=== PATIENT | male | born 1960 | race Caucasian/White ===

== ENCOUNTER 2018-05-22 22:53 | Inpatient (IN) | payer OTHER ==
[2018-05-22] MEDS ORDERED: ASPIRIN 81 MG CHEWABLE TAB PO ONE (23:00)
[2018-05-22] MEDS ORDERED: NS 1,000 ML IV ONE (23:00)
--- NOTE | 2018-05-22 23:06 | CPEKG ---
Heart Rate: 81 RR Interval: 741 P-R Interval: 164 QRSD Interval: 132 QT Interval: 364 QTC Interval: 423 P [place]: 71 QRS [place]: -85 T Wave [place]: 43 EKG Severity - ABNORMAL ECG - EKG Impression: SINUS RHYTHM EKG Impression: RIGHT BUNDLE BRANCH BLOCK Electronically Signed By: Murphy Holland 23-May-2018 06:49:45
--- NOTE | 2018-05-22 23:10 | EDPHY ---
H & P Stated Complaint: CP started last night Time Seen by Provider: 05/22/18 23:07 HPI/ROS: HPI CHIEF COMPLAINT: Chest pain HISTORY OF PRESENT ILLNESS: Patient 57-year-old male, presents emergency room with chest pain. He states that he has chest pain started last night around this time or close to 24 hr ago. Patient states that he had a pressure sensation in his chest. It has been intermittent not constant however he states that he has had worsening inspiratory chest pain. He describes it is pleuritic pain. It is across his chest. He denies any fever, denies hemoptysis , denies profound shortness of breath. The chest discomfort is unusual for him. He did state that goes up to his jaw all and neck at times. It does not go down his arm or back. He decided come the emergency room after 24 hr of discomfort as the pain got worse worse when he breathes in. Past Medical History: History of hypertension, hyperlipidemia, tobacco use Past Surgical History: Inguinal hernia Social History: Smokes half pack per day. 2 drinks of liquor per night. Occasional edible marijuana including tonight. Family History: Family history significant for atherosclerotic disease in his father who in his 60s. ROS REVIEW OF SYSTEMS: A comprehensive 10 point review of systems is otherwise negative aside from elements mentioned in the history of present illness. Exam Constitutional triage nursing summary reviewed, vital signs reviewed, awake/ alert. Eyes normal conjunctivae and sclera, EOMI, PERRLA. HENT normal inspection, atraumatic, moist mucus membranes, no epistaxis, neck supple/ no meningismus, no raccoon eyes. Respiratory clear to auscultation bilaterally, normal breath sounds, no respiratory distress, no wheezing. Cardiovascular rate normal, regular rhythm, no murmur, no edema, distal pulses normal. Gastrointestinal soft, non-tender, no rebound, no guarding, normal bowel sounds, no distension, no pulsatile mass. Genitourinary no CVA tenderness. Musculoskeletal no midline vertebral tenderness, full range of motion, no calf swelling, no tenderness of extremities, no meningismus, good pulses, neurovascularly intact. Skin pink, warm, & dry, no rash, skin atraumatic. Neurologic awake, alert and oriented x 3, AAOx3, moves all 4 extremities equally, motor intact, sensory intact, CN II-XII intact, normal cerebellar, normal vision, normal speech. Psychiatric normal mood/affect. Heme/Lymph/Immune no lymphadenopathy. Differential diagnosis includes but is not limited to: ACS, atypical chest pain , pneumothorax, pneumonia, pulmonary embolism, aortic dissection, congestive heart failure, tumor, musculoskeletal pain, esophageal pain, GERD, peptic ulcer disease, pancreatitis Medical Decision Making: Plan for this patient IV establishment with full cardiac workup obtain EKG to rule out acute coronary syndrome, chest x-ray,, rule out pulmonary embolism D-dimer, rule out pneumothorax with chest x-ray, rule out acute coronary syndrome with EKG and troponin. Re-evaluation: EKG interpretation by me on record in [employer] system. Impression time of EKG 2304, this is sinus rhythm rate of 81 right bundle-branch block present. I do not appreciate acute ST elevation. No significant ST depression. Unclear patient has a history of right bundle branch block. CT angiogram of the chest shows no evidence of pulmonary embolism this was called to me by Dr. Hsu. 0103: Patient's chest pain evaluation is unremarkable here in the emergency room. He does have a right bundle branch block but no old EKG to compare this to. D-dimer was positive however the CT angiogram of the chest shows no evidence of PE. Patient's troponin noted be negative. Patient be admitted to the hospital service for further cardiac evaluation chest pain rule out. Patient does have cardiovascular risk factors which includes tobacco use, age, hypertension, hyperlipidemia and family history. Spoke with the hospitalist service Dr. Holcomb who agrees to admit. Source: Patient, Family - Personal History Current Tetanus/Diphtheria Vaccine: Unsure Current Tetanus Diphtheria and Acellular Pertussis (TDAP): Unsure - Medical/Surgical History Hx Asthma: No Hx Chronic Respiratory Disease: No Hx Diabetes: No Hx Cardiac Disease: No Hx Renal Disease: No Hx Cirrhosis: No Hx Alcoholism: No Hx HIV/AIDS: No Hx Splenectomy or Spleen Trauma: No Other PMH: depression, , high chol, anxiety - Social History Smoking Status: Current every day smoker Constitutional: Initial Vital Signs Temperature (C) 36.9 C 05/22/18 22:55 Heart Rate 86 05/22/18 22:55 Respiratory Rate 16 05/22/18 22:55 Blood Pressure 143/87 H 05/22/18 22:55 O2 Sat (%) 95 05/22/18 22:55 O2 Delivery Mode Room Air O2 (L/minute) 2 Allergies/Adverse Reactions: No Known Allergies Allergy (Verified 05/23/18 09:57) Home Medications: Medication Instructions Recorded Atorvastatin Calcium [Lipitor 40 40 mg PO DAILY 05/23/18 mg (*)] Melatonin/Pyridoxine HCl (B6) 1 each PO HS 05/23/18 [Melatonin 10 mg Tablet] Sertraline HCl [Zoloft 50mg (*)] 50 mg PO DAILY 05/23/18 clonazePAM [klonoPIN (*)] 0.33 mg PO DAILY 05/23/18 clonazePAM [klonoPIN (*)] 0.5 mg PO DAILY@12 05/23/18 clonazePAM [klonoPIN (*)] 1 mg PO HS 05/23/18 Medical Decision Making - Data Points Laboratory Results: Laboratory Results 05/22/18 23:10 05/22/18 23:10 Medications Given: Cetirizine HCl (Zyrtec) 10 mg PO DAILY PATY Stop: 11/19/18 18:14 Last Admin: 05/23/18 20:57 Dose: Not Given Clonazepam (Klonopin) 1 mg PO HS PATY Stop: 11/19/18 20:59 Last Admin: 05/23/18 20:56 Dose: 1 mg Colchicine (Colchicine) 0.6 mg PO BID PATY Stop: 11/19/18 15:29 Last Admin: 05/23/18 20:56 Dose: 0.6 mg Enoxaparin Sodium (Lovenox) 90 mg SC BID PATY Stop: 11/19/18 20:59 Last Admin: 05/23/18 20:55 Dose: 90 mg Guaifenesin (Mucinex) 1,200 mg PO BID PATY Stop: 11/19/18 18:14 Last Admin: 05/23/18 20:57 Dose: Not Given Hydromorphone HCl (Dilaudid) 0.2 - 1 mg IVP Q2HRS PRN PRN Reason: Pain, Severe Unable to Take PO Stop: 06/02/18 11:38 Last Admin: 05/23/18 11:51 Dose: 1 mg Sodium Chloride (Ns) 1,000 mls @ 75 mls/hr IV CONT PATY Stop: 11/19/18 01:29 Last Admin: 05/23/18 23:32 Dose: 1,000 mls Amiodarone HCl 540 mg/ (Dextrose) 300 mls @ 16.667 mls/hr IV ONCE ONE PRN Reason: Protocol Stop: 05/24/18 12:59 Last Admin: 05/23/18 19:12 Dose: 300 mls Ketorolac Tromethamine (Toradol) 15 - 30 mg IVP Q6HRS PRN PRN Reason: Pain, Moderate Stop: 05/28/18 17:59 Last Admin: 05/23/18 23:32 Dose: 15 mg Miscellaneous Medication (Melatonin/Pyridoxine Hcl (B6) [Melatonin 10 Mg Tablet] ) 1 each PO [facility] Stop: 11/19/18 20:59 Last Admin: 05/23/18 21:31 Dose: Not Given Nicotine (Nicoderm Cq) 14 mg TD DAILY [facility] Stop: 11/19/18 03:29 Last Admin: 05/23/18 09:53 Dose: 14 mg Nitroglycerin (Nitrostat) 0.4 mg SL Q5M PRN PRN Reason: Chest Pain Stop: 11/19/18 01:24 Last Admin: 05/23/18 11:34 Dose: 1 tab Discontinued Medications Aspirin (Aspirin) 324 mg PO EDNOW ONE Stop: 05/22/18 23:01 Last Admin: 05/22/18 23:09 Dose: 324 mg Aspirin Buffered (Aspirin Ec) 325 mg PO ONCALL ONE Stop: 05/23/18 12:49 Last Admin: 05/23/18 14:52 Dose: Not Given Clonazepam (Klonopin) 1 mg PO [facility] Stop: 11/19/18 02:59 Last Admin: 05/23/18 04:00 Dose: 1 mg Diazepam (Valium) 5 mg PO ONCALL ONE Stop: 05/23/18 12:49 Last Admin: 05/23/18 14:52 Dose: Not Given Diphenhydramine HCl (Benadryl) 25 mg PO ONCALL ONE Stop: 05/23/18 12:49 Last Admin: 05/23/18 14:52 Dose: Not Given Enoxaparin Sodium (Lovenox) 90 mg SC BID [facility] Stop: 11/19/18 12:14 Last Admin: 05/23/18 12:57 Dose: Not Given Famotidine (Pepcid) 20 mg PO ONCALL ONE Stop: 05/23/18 12:49 Last Admin: 05/23/18 14:52 Dose: Not Given Sodium Chloride (Ns) 1,000 mls @ 0 mls/hr IV EDNOW ONE; Wide Open PRN Reason: Protocol Stop: 05/22/18 23:01 Last Admin: 05/22/18 23:11 Dose: 1,000 mls Amiodarone HCl (Amiodarone Hcl) 100 mls @ 600 mls/hr IV ONCE ONE Stop: 05/23/18 12:45 Last Admin: 05/23/18 12:57 Dose: 100 mls Sodium Chloride (Ns) 1,000 mls @ 0 mls/hr IV ONCALL ONE PRN Reason: TKO Stop: 05/23/18 12:49 Last Admin: 05/23/18 14:53 Dose: Not Given Amiodarone HCl (Amiodarone Hcl) 200 mls @ 33.333 mls/hr IV ONCE ONE PRN Reason: Protocol Stop: 05/23/18 19:59 Last Admin: 05/23/18 13:10 Dose: 200 mls Sodium Chloride (Ns) 1,000 mls @ 0 mls/hr IV ONCE ONE PRN Reason: Wide Open Stop: 05/23/18 17:11 Last Admin: 05/23/18 17:38 Dose: 1,000 mls Ketorolac Tromethamine (Toradol) 15 mg IVP ONCE ONE Stop: 05/23/18 03:29 Last Admin: 05/23/18 04:01 Dose: 15 mg Lorazepam (Ativan Injection) 1 mg IVP ONCE ONE Stop: 05/23/18 03:29 Last Admin: 05/23/18 04:01 Dose: 1 mg Lorazepam (Ativan) 1 mg PO ONCE ONE Stop: 05/23/18 22:31 Last Admin: 05/23/18 23:31 Dose: 1 mg Metoprolol Tartrate (Lopressor Injection) 5 mg IVP ONCE ONE Stop: 05/23/18 12:13 Last Admin: 05/23/18 12:37 Dose: Not Given Metoprolol Tartrate (Lopressor) 12.5 mg PO ONCE ONE Stop: 05/23/18 12:13 Last Admin: 05/23/18 12:36 Dose: 12.5 mg Morphine Sulfate (Morphine) 4 mg IVP EDNOW ONE Stop: 05/22/18 23:34 Last Admin: 05/22/18 23:37 Dose: 4 mg Morphine Sulfate (Morphine) 1 - 2 mg IVP Q1HR PRN PRN Reason: Chest Pain Stop: 06/02/18 01:21 Last Admin: 05/23/18 02:29 Dose: 2 mg Point of Care Test Results: Chemistry 05/22/18 23:12 POC Troponin I 0.02 ng/mL ng/mL (0.00-0.08) Departure - Departure Disposition: [facility] Acute Clinical Impression: Chest pain Qualifiers: Chest pain type: unspecified Qualified Code(s): R07.9 - Chest pain, unspecified Condition: Fair
[2018-05-22 23:21] LABS: PLATELET COUNT 232 10^3/uL (150-400)
[2018-05-22 23:31] LABS: INR 0.99 (0.83-1.16); PROTIME(PATIENT) 13.3 SEC (12.0-15.0)
[2018-05-22 23:34] LABS: CREATINE KINASE 82 IU/L (0-224)
[2018-05-22] MEDS ORDERED: IOPAMIDOL (ISOVUE 370) 100 ML BTL IV ONE (23:44)
[2018-05-23] MEDS ORDERED: ONDANSETRON 4 MG/2 ML VIAL IVP PRN (01:22)
[2018-05-23] MEDS ORDERED: ACETAMINOPHEN 325 MG TAB PO PRN (01:22)
[2018-05-23] MEDS ORDERED: NITROGLYCERIN 0.4 MG BTL SL PRN (01:25)
[2018-05-23] MEDS ORDERED: NS 1,000 ML IV SCH (01:30)
[2018-05-23] MEDS ORDERED: clonazePAM 1 MG TAB PO SCH (03:00)
[2018-05-23] MEDS ORDERED: KETOROLAC 15 MG/1 ML SDV IVP ONE (03:28)
[2018-05-23] MEDS ORDERED: LORazepam 2 MG/ML INJ IVP ONE (03:28)
[2018-05-23] MEDS: NICOTINE 14 MG/24 HR PATCH TD SCH ×2 (04:00→09:53)
--- NOTE | 2018-05-23 05:26 | GHP ---
[f rep st] HISTORY AND PHYSICAL DATE OF ADMISSION: 05/23/2018 SOURCE: Patient provides history, appears reliable. EMR was reviewed and case discussed with ED pro vider. CHIEF COMPLAINT: Sharp substernal chest pain. HISTORY OF PRESENT ILLNESS: Pleasant 57-year-old gentleman with past medical history significant for HTN, HLD, tobacco abuse, who presents to the emergency department today with complaints of 24 hours of chest pain. Patient reports that he was feeling well last evening, went to bed, and woke up with some upper substernal sharp chest pain. It is associated with inspiration and movement of the left s tasha. It is not associated with a cough. Patient denies any fevers, but he was at the movies earlier this evening and noticed that he was having significant shaking, but did not feel chilled. No fever s or sweats. No known sick contacts. Patient does have a history of a chronic cough that is nonprod uctive, associated with his chronic tobacco abuse. The patient denies any radiating pain to his back . He did report some occasional intermittent radiation to his left neck and jaw. The patient denies any shortness of breath, but he admits that he has been taking small shallow breaths due to the incr eased pain associated with inspiration. Patient, of note, reports that a week ago, he started on a h ome CPAP at bedtime, but appeared to be doing well with this. The patient is slightly sedentary, but occasionally states that he goes out for hikes. He denies any chest pain during his most recent act ivity. Denies any lower extremity edema. No orthopnea. No PND. In the emergency department, patient was given morphine, aspirin, and underwent evaluation with a lesly st x-ray that was clear. CTA of the chest was obtained for minimally elevated D-dimer, which was als o negative. The patient was noted to have a white count of 12.91, without any left shift. The patie nt reports that he did recently undergo an excision of a precancerous lesion on his penis and has sti tches, which are due to be removed shortly. He denies any erythema, swelling, increased pain, dysuri a, or hematuria. REVIEW OF SYSTEMS: GENERAL: Patient reports tremulousness or almost rigor type symptoms, but no chi lls. No fevers or sweats. SKIN: Patient denies any acute rashes, sores. Stitches in place in his penis. ENT: Patient denies any nasal congestion, sore throat. EYES: Patient denies any acute louise ges in vision or ocular pain. CV: See HPI. RESPIRATORY: Patient reports chronic smoker's cough, b ut nonproductive. No shortness of breath. GI: No nausea, vomiting, abdominal pain, or diarrhea. G U: No dysuria, hematuria. MUSCULOSKELETAL: Patient denies any joint pain or myalgias. NEURO: Pat ient denies any headache, numbness or tingling. PSYCH: Negative. Remainder of review of systems ne gative except as noted above. ALLERGIES: No known drug allergies. HOME MEDICATIONS: Melatonin, Lipitor, clonazepam at bedtime, dosing incomplete. PAST MEDICAL HISTORY: Significant for hyperlipidemia, hypertension, tobacco abuse, penile precancero us lesion, [place] on CPAP. PAST SURGICAL HISTORY: Significant for bilateral inguinal hernia repair, tonsillectomy, adenoidectom y age 3, bilateral knee meniscal repair, colonoscopy. FAMILY HISTORY: Father with CAD, [place] age 60s, . Patient denies any diabetes in the family. SOCIAL HISTORY: Patient is employed. He smokes half a pack per day and drinks 2 bourbon-based bever ages after work on Friday through Friday and nothing on the weekend. He does use occasional edible m arijuana and admits to use just yesterday. CODE STATUS: Full. PHYSICAL EXAMINATION: VITAL SIGNS: Upon arrival to the emergency department, blood pressure 143/87, heart rate 86, respiratory rate 16, O2 saturation 94% on room air with temperature 36.9. Current vi tals available: Blood pressure 154/87, heart rate 84, respiratory rate 16, O2 saturation 91% on room air, with temperature 36.9. GENERAL: No acute distress, pleasant 57-year-old gentleman, who appear s slightly older than stated age, is resting quietly in bed cradling his chest. Appears to grimace w ith inspiration or movement on the left side. HEAD: Normocephalic, atraumatic. EYES: Extraocular muscles grossly intact. Pupils equal and symmetric. No scleral icterus, conjunctival injection. EN T: Mucous membranes appear slightly dry. No nasal discharge. Dentition is intact. NECK: Supple. Trachea midline. CV: Regular rate and rhythm. No murmurs, rubs, or gallops appreciated. RESPIRAT ORY: Lungs clear to auscultation bilaterally. No wheezes, rales, or rhonchi. Patient is able to ta ke deep breaths, but during the interview, he is having decreased inspiratory effort, secondary to co mplaints of pain. ABDOMEN: Positive bowel sounds. Soft, nontender to palpation. No rebound, guard ing, or masses appreciated. : No suprapubic tenderness to palpation. No Scott catheter in place. Patient declines remainder of exam. MUSCULOSKELETAL: Strength intact. Patient is able to sit up and walk independently. Gait is normal. NEURO: Grossly nonfocal. No facial drooping. Moves al l extremities. PSYCH: Thought process content and questions are appropriate. The patient does appe ar uncomfortable and grimaces intermittently during exam with deep inspiration movement on the left s tasha. He is, otherwise, in no acute distress. LABORATORY STUDIES: WBC 12.91, H and H 15.1, 46.1, MCV 92.6, platelet count is 232, no bands. PT is 13.3, INR 0.99, PTT is 29.3. D-dimer 0.51. Sodium 139, potassium 4.0, chloride 103, CO2 27, anion gap 9, BUN 21, creatinine is 1.1. GFR greater than 60. Glucose 85, calcium 9.7, magnesium 2.1, tota l bilirubin 0.5. ALT is 30, AST 17, alkaline phosphatase 57. CK is 82, CK-MB is 1.17. Troponin 0.0 2. BTNP is 177. Total protein 6.7, albumin 3.9, lipase is 59. EKG was reviewed by myself showing normal sinus rhythm in the 80s, right bundle branch block, QTc of 423. No previous EKGs available for comparison. Chest x-ray image was reviewed by myself. Clear and negative for any acute findings. No infiltrates . CTA of the chest: Image and report reviewed. Negative for acute pulmonary thromboembolic disease. No significant mediastinal, axillary lymphadenopathy. No significant pleural disease. ASSESSMENT AND PLAN: Pleasant 57-year-old gentleman with history of hypertension, hyperlipidemia, to bacco abuse, and family history of coronary disease, who presents to the emergency department today w ith complaints of upper substernal sharp pleuritic-type chest pain. 1. Chest pain, sounds quite pleuritic in nature. His initial troponin after 24 hours of onset of hi s chest pain was negative. EKG did show a right bundle branch block, unclear if this is chronic in n ature as we do not have any available comparison EKGs at this time. The patient's heart score is 2, putting him at a low risk for major adverse event. Discussed with the patient his options to rule ou t with a repeat troponin in the morning and possible discharge to follow up with his primary care doc kevyn. He reports that he did have a normal stress test approximately 2 years ago, did have his annual physical, but was not recommended to proceed with a repeat stress test at that time. The patient's symptoms do sound to be pleuritic in nature. Morphine has not significantly alleviated any of his sy mptoms. We will plan to repeat troponin in the morning. However, in the interim, given that it is i nflammatory in nature, we will go ahead and give him a single dose of Toradol, and also a dose of Ati van. As patient does take Klonopin in the evening for sleep, he is requesting something in addition. I have a low suspicion for a cardiac etiology of patient's pain. We will plan to repeat a troponin . We will make nitroglycerin available, but given that it does not sound cardiac in nature, do not a nticipate this will be helpful, but may consider if patient continues to have worsening symptoms, but at this time appears to be stable as long as patient does not turn to his side or take shallow breat hs. CT was negative for PE or pneumonia. 2. Leukocytosis. This could be reactive versus infectious in etiology as patient most recently had a surgery of a precancer growth on his penis, but he denies any erythema, drainage, swelling, or incr eased pain, and declined exam. We will supplement with a little bit of IV fluid hydration as patient does appear slightly dry, and repeat a CBC in the morning. 3. Tobacco. Patient reports that he is quitting as of today. Did offer patient a nicotine patch, w julieta he did accept. This has been ordered. 4. Obstructive sleep apnea on CPAP generally. Supplemental oxygen p.r.n. 5. Hyperlipidemia. Continue statin. Obtain lipid panel. 6. Benign essential hypertension. Patient without any list of medications at this time. Will monit or the patient's blood pressures, which at this point are acceptable given his age, but again, encour aged patient to quit tobacco and increase his physical activity, and make lifestyle adjustments as ap propriate. 7. Fluids, electrolytes, nutrition. IV fluids overnight as noted above. Electrolyte monitoring and replacement if needed. The patient currently n.p.o. Repeating a troponin, but again suspect that t his will be negative and then patient may be interested in just following up with his primary care do ctor given that his heart score is below 4. He requests that we just try to get the pain to go away. 8. Prophylaxis. Lovenox if patient should stay additional day; otherwise, encourage mobilization. 9. Code status is full. 10. Disposition: The patient admitted to observation status on the PCU today pending repeat troponi ns and symptom improvement. /[id number]/MODL
--- NOTE | 2018-05-23 10:15 | ASMTCMCOM ---
CM Note CM Note Notes: Pt admitted w/cp. Reviewed chart, aniticipate pt will dc home independantly when med stable. Date Signed: 05/23/2018 10:14 AM Electronically Signed By:Shayy Rolon RN
[2018-05-23] MEDS ORDERED: REGADENOSON 0.4 MG/5 ML SYR IVP ONE (11:35)
[2018-05-23] MEDS ORDERED: HYDROmorphONE/DILAUDID 2 MG TAB PO PRN (11:39)
[2018-05-23] MEDS ORDERED: HYDROmorphONE/DILAUDID 1 MG/ML INJ IVP PRN (11:39)
--- NOTE | 2018-05-23 12:00 | CPEKG ---
Heart Rate: 120 RR Interval: 500 QRSD Interval: 124 QT Interval: 328 QTC Interval: 464 QRS [place]: 43 T Wave [place]: 11 EKG Severity - ABNORMAL ECG - EKG Impression: ATRIAL FIBRILLATION, V-RATE 84-156 EKG Impression: RBBB AND LPFB Electronically Signed By: Vasiliy Delgado 25-May-2018 02:36:23
[2018-05-23] MEDS ORDERED: METOPROLOL TARTRATE 25 MG TAB PO ONE (12:12)
[2018-05-23] MEDS ORDERED: METOPROLOL TARTRATE 5 MG/5 ML INJ IVP ONE (12:12)
[2018-05-23] MEDS ORDERED: ENOXAPARIN 100 MG/ML SYR SC SCH (12:15)
--- NOTE | 2018-05-23 12:21 | SOAPPROG ---
SOAP Progress Note Assessment/Plan: Assessment: New cardiology consultation. See dictation for full details. 57 y/o man with HTN, hyperlipidemia, [place] on CPAP, moderate ETOH use and active tobaccoism. He had a reportedly normal ETT 2014. One month ago could hike five miles with his girlfriend. Starting two days ago he has had constant sharp CP base of neck with shortness of breath. Admitted around 2am last night and initial troponin negative and ECG showed NSR with RBBB. CTA chest showed no PE. His CP is worsening requiring IV narcotics and currently 8/10. Ecg now afib at 130bpm with RBBB and ST elevation inferorily. There is a component of pleuritic nature to his CP. DDX: unstable angina from obstructive CAD, afib, pleurisy or pericarditis. I think we need to acutely rule out obstructive CAD. PLAN: 1)IV metoprolol now 2)IV lovenox now 3)urgent cardiac cath now 4)echo later today 5)if coronary angiogram unremarkable, treat empirically fo pleurisy. 6)smoking cessation Thanks. will follow with you. 05/23/18 12:16 Objective: Vital Signs Temp Pulse Resp BP Pulse Ox 37.1 C 72 16 105/62 98 05/23/18 08:40 05/23/18 08:40 05/23/18 08:40 05/23/18 08:40 05/23/18 08:40 Laboratory Results 05/23/18 05:30 05/22/18 05/23/18 05/24/18 05:59 05:59 05:59 Intake Total 1450 Output Total 100 Balance 1350 PT 13.3 SEC (12.0-15.0) 05/22/18 23:00 INR 0.99 (0.83-1.16) 05/22/18 23:00 ICD10 Worksheet Patient Problems: Problems Problem Status Onset Chest pain Acute
[2018-05-23] MEDS ORDERED: AMIODARONE HCL 100 ML IV ONE (12:36)
[2018-05-23] MEDS ORDERED: FAMOTIDINE 20 MG TAB PO ONE (12:48)
[2018-05-23] MEDS ORDERED: DIAZEPAM 5 MG TAB PO ONE (12:48)
[2018-05-23] MEDS ORDERED: diphenhydrAMINE 25 MG CAP PO ONE (12:48)
[2018-05-23] MEDS ORDERED: ASPIRIN EC 325 MG TAB PO ONE (12:48)
[2018-05-23] MEDS ORDERED: NS 1,000 ML IV ONE ×2 (12:48→17:10)
[2018-05-23] MEDS ORDERED: LIDOCAINE 1% 300 MG/30 ML SDV ONE (12:49)
[2018-05-23] MEDS ORDERED: MIDAZOLAM 2 MG/2 ML VIAL ONE (12:50)
[2018-05-23] MEDS ORDERED: IOPAMIDOL (ISOVUE-370) 150 ML BTL IV ONE (12:50)
[2018-05-23] MEDS ORDERED: fentaNYL 100 MCG/2 ML INJ ONE (12:50)
[2018-05-23] MEDS ORDERED: BIVALIRUDIN 250 MG/5 ML VIAL IV ONE (12:51)
[2018-05-23] MEDS ORDERED: HEPARIN 10,000 UNIT/10 ML MDV (1,000 UNIT/ML) ONE (12:52)
[2018-05-23] MEDS ORDERED: EPINEPHrine 1 MG/10 ML SYR IVP ONE (12:52)
[2018-05-23] MEDS ORDERED: NITROGLYCERIN 1,500 MCG/15 ML VIAL MISC ONE (12:52)
[2018-05-23] MEDS ORDERED: ATROPINE SULFATE 1 MG/10 ML SYR ONE (12:52)
--- NOTE | 2018-05-23 13:13 | GCON ---
[f rep st] CONSULTATION CARDIOLOGY CONSULT DATE OF CONSULTATION: 05/23/2018 REASON FOR CONSULTATION: Evaluate gentleman with worsening chest pain and new onset atrial fibrillat ion with newly elevated cardiac troponin. HISTORY OF PRESENT ILLNESS: I was asked by Dr. Tee Weber to consult for the above reasons. The pa don is a 57-year-old gentleman with no previous cardiac problems. He reportedly had a stress test 2 years ago, which was unremarkable. He does have longstanding hypertension, hyperlipidemia, active tobacco use, sleep apnea, and moderate alcohol intake. He reports a month ago he could have gone on a 5-mile walk with his girlfriend without difficulty. Starting 2 days ago, he had sharp chest pressu re at the base of his neck. It has continued constantly for the last 36 hours. It is associated wit h mild shortness of breath and mild pleuritic nature. He reports no cough, fevers, or prodromal URI symptoms. He was admitted about 9 hours ago, and his EKG at that time was normal sinus rhythm with a right bundle branch block. His troponin was unremarkable. Over the 9 hours in the hospital, his pa in has worsened, requiring IV narcotics, and he went into atrial fibrillation with a heart rate of 13 0 beats per minute in the last hour with new ST elevation inferiorly. He is having an 8/10 chest pranav n. Of note, however, when I put my hand on his chest, his pain improves, and he does not appear toxi c or ill. PAST MEDICAL HISTORY: Hypertension, hyperlipidemia, active tobaccoism, sleep apnea on CPAP, and mode rate alcohol intake. PAST SURGICAL HISTORY: Bilateral hernia repairs. CURRENT MEDICATIONS: Dilaudid and Klonopin. SOCIAL HISTORY: The patient is single. He works as a commercial realtor. He has active tobaccoism and drinks 2-3 alcohol drinks per day. FAMILY HISTORY: Positive for premature coronary artery disease. REVIEW OF SYSTEMS: The patient reports no recent fevers, chills, weight gain or weight loss. He has no TIA or CVA symptoms. He denies GI bleed symptoms, such as hematemesis, melena, or bright red blo od per rectum. Rest of 10-point review of systems is negative. PHYSICAL EXAM: VITAL SIGNS: Afebrile, pulse 120, blood pressure 140/80, respirations 18. GENERAL: A normal-appearing gentleman with chest pain, in no acute distress. HEENT: Eyes: Pupils equal and reactive to light. ENT: Oral mucosa with no cyanosis. NECK: Jugular venous pressure to 7 cm. Ca rotid pulses 2+ bilaterally, with no obvious bruits. No thyromegaly noted. LUNGS: Clear to auscult ation bilaterally with poor respiratory effort. No wheezes or rales heard. HEART: Irregularly irre gular with tachycardia. No murmurs or S3 is heard. ABDOMEN: Soft and nontender. No guarding or re bound. EXTREMITIES: 2+ peripheral pulses, including femoral and pedal pulses. No edema noted. MUS CULOSKELETAL: No scoliosis. SKIN: No bleeding or cyanosis. NECK: No nuchal rigidity. LABS: White count 11.2, hematocrit 40, platelets 198,000, MCV 90. Sodium 139, potassium 4.0, chlori de 103, bicarb 27, BUN 21, creatinine 1.1, glucose 85. LFTs within normal limits. Troponin initiall y unremarkable, then 0.04. NT proBNP level 177. IMPRESSION: A 57-year-old gentleman with ongoing 8/10 chest pain. Differential diagnosis includes p leurisy versus pericarditis versus atrial fibrillation with rapid ventricular response versus new uns table angina from obstructive coronary artery disease. I think we need to take him to the [facility] a cutely to rule out obstructive coronary artery disease, especially in the RCA distribution. He may h ave a normal coronary angiogram as some of his chest pain is atypical. RECOMMENDATIONS: 1. Would give a dose of IV metoprolol now. 2. Would give a dose of IV Lovenox now. 3. Will take him to the [facility] acutely in the next hour or 2 for coronary angiogram, and if clinic ally appropriate, PCI. 4. If coronary catheterization is unremarkable, would treat empirically for pleurisy and/or pericard itis. 5. Would get an echocardiogram later this afternoon after his cardiac catheterization is done. 6. He has been already discussed smoking cessation and alcohol consumption reduction and will contin ue this conversation during the hospitalization. /[id number]/MODL
[2018-05-23] MEDS ORDERED: PHENYLEPHRINE HCL 100 MCG/ML SYR ONE (13:25)
[2018-05-23] MEDS ORDERED: AMIODARONE A.FIB-6HR INFSN (ORDER 2/3) PREMIX IV ONE (14:00)
[2018-05-23] MEDS ORDERED: ONDANSETRON 4 MG/2 ML VIAL ONE (14:03)
[2018-05-23] MEDS ORDERED: ATROPINE SULFATE 1 MG/10 ML SYR IVP PRN (14:11)
--- NOTE | 2018-05-23 14:18 | CPIP ---
[f rep st] INVASIVE CARDIAC PROCEDURE DATE OF PROCEDURE: 05/23/2018 PROCEDURE: 1. Coronary angiography. 2. Left ventriculography. 3. Right heart catheterization. INDICATIONS: 1. Chest pain syndrome. 2. Elevated troponin. 3. Hypotension. ACCESS: Patient was prepped and draped in sterile fashion. 1% lidocaine was used to anesthetize the right inguinal region. A 6-Portuguese introducer sheath was placed selectively into the right common fe moral artery via modified Seldinger technique. A 7-Portuguese introducer sheath was placed selectively i nto the right common femoral vein via modified Seldinger technique. CORONARY ANGIOGRAPHY: A 6-Portuguese JL4 was advanced to the left main coronary artery and images obtain ed. The left main coronary artery bifurcated into an LAD and circumflex coronary arteries. The left main coronary artery appeared normal. The left anterior descending coronary artery gave rise to one prominent diagonal branch. The left anterior descending coronary artery had mild diffuse disease th roughout. There was no stenosis greater than 20%. The first diagonal artery was a large vessel. Th e first diagonal artery appeared normal. The circumflex coronary artery is a moderate-sized vessel. The circumflex coronary artery is nondominant. Circumflex coronary artery appeared normal. The fir st OM artery had an ostial 20% stenosis present. A 6-Portuguese JR4 was advanced to the right coronary a rtery and images obtained. The right coronary artery is dominant. The right coronary artery appeare d normal. LEFT VENTRICULOGRAPHY: A 6-Portuguese pigtail catheter was advanced in the left ventricle and images obt ained. Left ventricle was normal in size, had normal systolic function. Estimated ejection fraction 60%. The left ventricular end-diastolic pressure was 14 mmHg. RIGHT HEART CATHETERIZATION: Right heart catheter was advanced to the right atrium and pressure obta ined. The right atrial pressure was 15 mmHg. The catheter was then advanced into the right ventricl e and pressure obtained. The right ventricular pressure was 36/11 mmHg. The catheter was then advan reno in the pulmonary artery position and pressure obtained. The pulmonary artery pressure was 37/21 mmHg. It was then advanced into the wedge position and pressure obtained. The pulmonary capillary w edge pressure was 18 mmHg. The pulmonary artery saturation was 68%. The femoral artery saturation w as 96%. The cardiac output was 5.57. Cardiac index 2.65. COMPLICATIONS: None. CONCLUSIONS: 1. Mild coronary artery disease. 2. Normal left ventricular size and systolic function. 3. Borderline pulmonary hypertension with a mean pulmonary artery pressure of 27 mmHg. /[id number]/MODL
[2018-05-23] MEDS ORDERED: FAMOTIDINE 20 MG TAB ONE (14:51)
[2018-05-23] MEDS ORDERED: FAMOTIDINE 20 MG/NACL/50 ML BAG IV ONE (14:52)
[2018-05-23] MEDS ORDERED: ONDANSETRON DISINTEGRATING 4 MG TAB PO PRN (15:19)
[2018-05-23] MEDS ORDERED: PROMETHAZINE HCL 25 MG/ML INJ IVP PRN (15:19)
[2018-05-23] MEDS ORDERED: PROMETHAZINE HCL 25 MG TAB PO PRN (15:19)
[2018-05-23] MEDS: COLCHICINE 0.6 MG CAP/TAB PO SCH ×2 (15:34→20:56)
[2018-05-23] MEDS: KETOROLAC 15 MG/1 ML SDV IVP PRN ×2 (17:21→23:32)
--- NOTE | 2018-05-23 17:59 | ECHO ---
[email or web address] [address] [address] Main: [phone] Fax: [email or web address] Echocardiogram Name: DEREK WINTER MR#: [id number] Study Date: 05/23/2018 Study Time: 03:37 PM Date of : 1960 Age: 57 year(s) Height: ( ) Weight: ( ) BSA: Gender: Male Examination: Echo Indication: r/o effusion Image Quality: Contrast: Requested by: Violetta Holcomb BP: 105 mmHg/82 mmHg Heart Rate: Rhythm: Indication: r/o effusion Procedure Staff Cigarette Tipper: Violeta Pathak RDCS Reading Physician: Raymundo Solomno MD Requesting Provider: Conclusions: 1)Atrial fibrillation with heart of 104bpm. 2)Normal LV size and systolic function with a LVEF of 55% and normal wall motions. 3)Mild concentric LVH noted. 4)Mild right atrial enlargement noted. 5)Trivial MR without MV prolapse. 6)Mild TR with estimated normal PA pressures. 7)No pericardial effusion seen. Measurements: Chambers Valvular Assessment AV/MV Valvular Assessment TV/PV Normal Normal Normal Name Value Range Name Value Range Name Value Range Ao Ailyn (2D): 3.6 cm (1.4 cm-2.6 AV Vmax: 1.00 m/s (1 m/s-1.7 TR Vmax: 2.46 mm/s ( - ) cm) m/s) TR PGmax: 24 mmHg ( - ) IVSd (2D): 1.1 cm (0.6 cm-1.1 AV maxP mmHg ( - ) syst. PAP: 29 mmHg ( - ) cm) AV meanP mmHg ( - ) PV Vmax: 0.79 m/s (0.6 m/s-0.9 LVDd (2D): 4.4 cm (4.2 cm-5.9 NOLA (VTI): 3.7 cm ( - ) m/s) cm) MV E Vmax: 0.74 m/s ( - ) PV PGmax: 2 mmHg ( - ) LVDs (2D): 3.0 cm (2.1 cm-4 MV PHT: 0.059 s ( - ) cm) MVA (PHT): 3.7 s ( - ) LVPWd (2D): 1.0 cm (0.6 cm-1 cm) LVOTd 2.3 cm 2.3 cm mm LVEF (BP): 55 % (>=55 %) RVDd(2D): 3.2 cm (1.9 cm-3.8 cmmm) Continued Measurements: Chambers Valvular Assessment AV/MV Valvular Assessment TV/PV Patient: DEREK WINTER Study Date: 05/23/2018 Page 1 of 2 03:37 PM Name Value Name Value Name Value LADs: 3.2 cm MV DecTime: 162 m/s CVP (est.): 5 mmHg LADs Lon.4 cm MV E' Septal: 0.08 m/s LA Area: 19.3 cm2 MV E/E' Septal: 8.80 LA Volume: 49 ml MV E/E' Lateral: 10.50 RA Area: 30.5 cm2 Additional Vessels Name Value Ao Ascendin.1 cm Inferior Vena Cava: 1.5 cm Findings: Left Ventricle: Normal size left ventricle. No LV hypertrophy. Normal global systolic LV function. EF is 55 %. No regional wall motion abnormality. Unable to assess diastolic dysfunction. Right Ventricle: Mildly dilated right ventricle. Normal RV function. Left Atrium: The left atrium is normal in size. Right Atrium: Right atrial enlargement. Mitral Valve: The mitral valve is normal in appearance and function. No mitral stenosis is present. Trivial mitral valve regurgitation. Aortic Valve: The aortic valve is tri-leaflet. There is no significant aortic valve regurgitation. No aortic valve stenosis is present. Tricuspid Valve: The tricuspid valve is normal in appearance and function. Mild tricuspid regurgitation is present. The pulmonary artery pressure is normal. Right ventricular systolic pressure measures 29mmHg. Pulmonic Valve: The pulmonic valve is normal in appearance and function. There is no pulmonic regurgitation seen. Aorta: The aorta is normal. Normal size aortic root measuring 3.6 cm. Normal size ascending aorta measuring 3.1 cm. IVC: The IVC is normal sized. Pericardium: No pericardial effusion. No pleural effusion. Exam Comments: Patient is supine from recent heart cath. (No Signature Object) Patient: DEREK WINTER Study Date: 05/23/2018 Page 2 of 2 03:37 PM [id number]
[2018-05-23] MEDS ORDERED: FLUTICASONE NASAL 120 SPRAYS/16 GM MDI EACHNARE PRN (18:12)
[2018-05-23] MEDS ORDERED: AMIODARONE A.FIB-18HR INFSN (ORDER 3/3) IV ONE (19:00)
--- NOTE | 2018-05-23 19:16 | HOSPPROG ---
Hospitalist Progress Note Assessment/Plan: 40 min of critical care time spent at bedside, with this patient, addressing the following issues which render him critically ill with high risk of worsening morbidity and/or mortality, specifically addressing his acute chest pain, hypotension, demand ischemia: -patient with recurrent chest pain this morning, and evidence of acute demand ischemia with an elevated troponin level as well as development of acute atrial fibrillation with rapid ventricular response -physical exam demonstrates a patient in active pain, mild distress, heart rhythm tachycardic, irregularly irregular, no lower extremity edema, pain with deep inspiration, inspiratory crackles in the bilateral bases, no abdominal tenderness to palpation -initially provided patient with sublingual nitroglycerin and IV Dilaudid, and then evaluated the patient with sql server consultant Dr. Raymundo Solomon, we agreed to give the patient IV metoprolol 5 mg with 12.5 mg orally thereafter as well as initiate systemic anticoagulation for atrial fibrillation as well as a possible acute coronary syndrome -immediate cardiac catheterization was arranged for the patient, and the patient underwent catheterization with Dr. Charli Callahan, who reported to me that the patient had clean coronaries but development of acute hypotension postprocedurally -consequently in the recovery area, we initiated the patient on an IV amiodarone drip and when he returned to the PCU he was hypotensive, so he was bolused 1 L normal saline -lactic acid level drawn was within normal limits, so the patient was not placed on pressors, he will be continued on supplemental IV fluids overnight with repeat lactic acid level in a.m. -repeat troponin level continue to be elevated but was downtrending, indicating demand ischemia and not worsening despite ongoing rapid ventricular response, which has been responding to the IV amiodarone -pulmonary embolism ruled out with CT angiogram -intra-abdominal bleed ruled out with CT of the abdomen without contrast -after discussion with our Cardiology colleagues, are impression is that the patient is experiencing acute pericarditis and possible pleuritis in the setting of recent upper respiratory infection and the patient should receive IV nonsteroidal anti-inflammatory medication, scheduled colchicine, and IV Dilaudid as breakthrough for pain control -he will also receive scheduled antihistamine and Mucinex as well as as needed intranasal steroid if required for his URI symptoms -will continue to monitor troponin, lactic acid level, white blood cell count and he currently remains appropriate for the PCU, with standing his lactic acid level does not rise and he does not developed worsening hypotension Objective: Vital Signs Temp Pulse Resp BP Pulse Ox 37.8 C 55 L 16 77/47 L 97 05/23/18 16:39 05/23/18 18:22 05/23/18 16:39 05/23/18 18:22 05/23/18 18:22 Microbiology 05/23/18 11:25 Respiratory Panel (PCR) - Final Nasal, Sinus - Swab No Organism Detected Laboratory Results 05/23/18 05:30 05/22/18 05/23/18 05/24/18 05:59 05:59 05:59 Intake Total 1450 255 Output Total 100 200 Balance 1350 55 PT 13.3 SEC (12.0-15.0) 05/22/18 23:00 INR 0.99 (0.83-1.16) 05/22/18 23:00 ICD10 Worksheet Patient Problems: Problems Problem Status Onset Chest pain Acute
[2018-05-23] MEDS: ENOXAPARIN 100 MG/ML SYR SC SCH (20:55)
[2018-05-23] MEDS: clonazePAM 1 MG TAB PO SCH (20:56)
[2018-05-23] MEDS: CETIRIZINE 10 MG TAB PO SCH (20:57)
[2018-05-23] MEDS: guaiFENesin 600 MG TAB.ER PO SCH (20:57)
[2018-05-23] MEDS: MELATONIN PO SCH (21:31)
[2018-05-23] MEDS: PYRIDOXINE HCL PO SCH (21:31)
[2018-05-23] MEDS ORDERED: LORazepam 1 MG TAB PO ONE (22:30)
[2018-05-24 04:00] LABS: PLATELET COUNT 165 10^3/uL (150-400)
[2018-05-24] MEDS ORDERED: IBUPROFEN 600 MG TAB PO PRN (08:39)
--- NOTE | 2018-05-24 08:45 | SOAPPROG ---
SOAP Progress Note Assessment/Plan: 1. Pleuritis/pericarditis - Pt presented with repirophasic chest pain and an elevated troponin. CT angiogram negative for PE. Cardiac catheterization with mild CAD. CT scan of abdomen demonstrated thickening of the pericardium compared to prior CT scan to R/O PE. Symptoms improved with toradol and colchicine. --> Motrin 600 mg tid for 1 week --> prilosec 20 mg daily for GI prophylaxis for 1 week --> Colchicine .6 mg bid for 3 months. 2. A-fib - Pt with A-fib in the setting of pericarditis. Resolved with amiodarone infusion and treatment of pericarditis. Suspect situational. --> asa 81 mg daily 3. CAD - Pt has mild non-obstructive CAD by angiogram. Continue secondary prevention. --> asa, lipitor, smoking cessation. 4. Tobacco use - Discussed the importance of smoking cessation 5. Hyperlipidemia - LDL = 86 on lipitor 10 mg daily. Will increase to 20 mg daily. FLP and LFTs in 3 months 05/24/18 08:45 Subjective: chest pain improved No orthopnea or PND No access site complications converted to NSR overnight Objective: Vital Signs Temp Pulse Resp BP Pulse Ox 36.9 C 68 14 133/70 H 97 05/24/18 08:00 05/24/18 08:00 05/24/18 08:00 05/24/18 08:00 05/24/18 08:00 Microbiology 05/23/18 11:25 Respiratory Panel (PCR) - Final Nasal, Sinus - Swab No Organism Detected Laboratory Results 05/24/18 03:44 05/24/18 03:44 05/23/18 05/24/18 05/25/18 05:59 05:59 05:59 Intake Total 1450 1709 Output Total 100 550 Balance 1350 1159 PT 13.3 SEC (12.0-15.0) 05/22/18 23:00 INR 0.99 (0.83-1.16) 05/22/18 23:00 Physical Exam - Physical Exam General Appearance: alert, no apparent distress Respiratory: lungs clear Cardiac/Chest: regular rate, rhythm Abdomen: non-tender, soft Skin: normal color Extremities: other (No hematoma or echymosis. 2+ PT and DP), No pedal edema Neuro/Psych: alert, oriented x 3 ICD10 Worksheet Patient Problems: Problems Problem Status Onset Chest pain Acute
[2018-05-24] MEDS ORDERED: ATORVASTATIN CALCIUM 40 MG TAB PO SCH (09:00)
[2018-05-24] MEDS ORDERED: clonazePAM 1 MG TAB PO SCH (09:00)
[2018-05-24] MEDS: PANTOPRAZOLE SODIUM 40 MG TAB PO SCH (09:43)
[2018-05-24] MEDS: COLCHICINE 0.6 MG CAP/TAB PO SCH ×2 (09:44→19:56)
[2018-05-24] MEDS: ATORVASTATIN CALCIUM 20 MG TAB PO SCH (09:44)
[2018-05-24] MEDS: SERTRALINE HCL 50 MG TAB PO SCH (09:44)
[2018-05-24] MEDS: CETIRIZINE 10 MG TAB PO SCH (09:44)
[2018-05-24] MEDS: clonazePAM 1 MG TAB PO SCH ×4 (09:45→19:56)
[2018-05-24] MEDS: NICOTINE 14 MG/24 HR PATCH TD SCH (09:46)
[2018-05-24] MEDS: guaiFENesin 600 MG TAB.ER PO SCH ×2 (09:47→19:55)
[2018-05-24] MEDS: clonazePAM 0.5 MG TAB PO SCH (10:24)
--- NOTE | 2018-05-24 11:32 | CPEKG ---
Heart Rate: 65 RR Interval: 923 P-R Interval: 168 QRSD Interval: 146 QT Interval: 420 QTC Interval: 437 P Dixon: 47 QRS Dixon: -42 T Wave Dixon: 5 EKG Severity - ABNORMAL ECG - EKG Impression: SINUS RHYTHM EKG Impression: RIGHT BUNDLE BRANCH BLOCK Electronically Signed By: Vasiliy Delgado 25-May-2018 02:36:17
[2018-05-24] MEDS: METOPROLOL TARTRATE 25 MG TAB PO SCH ×2 (11:44→19:55)
[2018-05-24] MEDS: ENOXAPARIN 100 MG/ML SYR SC SCH (14:59)
--- NOTE | 2018-05-24 19:19 | HOSPPROG ---
Hospitalist Progress Note Assessment/Plan: Assessment: 57-year-old male presents with acute perimyocarditis complicated by new onset of atrial fibrillation with acute rapid ventricular response, hypotension Plan: 1. Perimyocarditis. This is the likely cause of the patient's acute chest pain with resultant type [address]-elevation myocardial infarction -nonobstructive coronary disease on cardiac catheterization, discussed with Dr. Charli Callahan, he does recommend increasing the patient's Lipitor, continuing to trend the patient's troponin level -given the patient's troponin level is up trending, currently 5.1, is unsafe to medically discharge the patient this time as this places him at high risk for inducible arrhythmias and should be monitored on telemetry for an additional 24 hr until his troponin levels downtrend -continue to trend his troponin levels -continue to treat pain as needed with high-dose ibuprofen, colchicine, patient reports that this intervention has been very successful -counseled the patient regarding treatment strategy above, the patient is amenable to remaining hospitalized as he fully grasps the risk and severity 2. Atrial fibrillation. New onset, acute rapid ventricular response, patient has chemically cardioverted with amiodarone -discussed with Dr. Charli Callahan, he has recommended that we discontinue amiodarone and continue the patient on single debbie blocking therapy, notably metoprolol -continue patient on systemic anticoagulation, notably Eliquis -patient will need outpatient follow-up for likely 30 day event monitor to gauge whether he has recurrence 3. Hypotension. Acute, most likely secondary to medications required for AFib management as well as poor cardiac output, status post IV saline boluses, resolved 4. Type [address]-elevation myocardial infarction. Rising troponin level, no focal wall motion abnormalities on echocardiogram 5. Bladder nodularity. Incidental finding on abdominal CT, monitor for any signs of hematuria Diet. Regular Prophylaxis. High risk patient, currently systemically anticoagulated Code. Full Disposition. Anticipated discharge is 05/25, pending down trending of troponin level Subjective: Patient denies active chest pain, reports that it responded to colchicine and Toradol Objective: Vital Signs Temp Pulse Resp BP Pulse Ox 37.3 C 72 12 147/80 H 94 05/24/18 16:00 05/24/18 16:00 05/24/18 16:00 05/24/18 16:00 05/24/18 16:00 Laboratory Results 05/24/18 03:44 05/24/18 03:44 05/23/18 05/24/18 05/25/18 05:59 05:59 05:59 Intake Total 1450 1709 1186.8 Output Total 100 550 Balance 1350 1159 1186.8 PT 13.3 SEC (12.0-15.0) 05/22/18 23:00 INR 0.99 (0.83-1.16) 05/22/18 23:00 - Time Spent With Patient Time Spent with Patient: greater than 35 minutes Time Spent with Patient: Greater than 35 minutes spent on this patients care, greater than 50% of time spent counseling, educating, and coordinating care regarding the above mentioned plan. - Pending Discharge Pending Discharge Within 24 Hours: Yes Pending Discharge Date: 05/25/18 Pending Discharge Time: 11:00 - Physical Exam Constitutional: no apparent distress, not in pain, No uncomfortable Cardiovascular: No systolic murmur, No irregularly irregular, No tachycardia, No edema Respiratory: no respiratory distress, no rales or rhonchi, clear to auscultation Gastrointestinal: normoactive bowel sounds, soft, non-tender abdomen, no palpable masses Neurologic: AAOx3 Psychiatric: interacting appropriately, not anxious, not encephalopathic, thought process linear ICD10 Worksheet Patient Problems: Problems Problem Status Onset Chest pain Acute
[2018-05-24] MEDS: APIXABAN 5 MG TAB PO SCH (19:56)
[2018-05-24] MEDS: PYRIDOXINE HCL PO SCH (20:01)
[2018-05-24] MEDS: MELATONIN PO SCH (20:01)
[2018-05-24] MEDS ORDERED: MELATONIN 3 MG TAB PO SCH (21:00)
[2018-05-25 04:16] LABS: PLATELET COUNT 198 10^3/uL (150-400)
--- NOTE | 2018-05-25 09:26 | PDCARPN ---
Cardiology Progress Note Chief Complaint: myopericarditis/pleuritis Assessment/Plan: Assessment: 57 y/o M PMH htn, dyslipidemia, [place]/recent CPAP start, tobacco, who presented with sharp substernal cp admitted 05/22. Proceeded to [facility] which showed mild nonobstructive CAD. Also developed AF RVR. #Pleuritis/pericarditis Pt presented with repirophasic chest pain and an elevated troponin. CT angiogram negative for PE. Cardiac catheterization with mild CAD. CT scan of abdomen demonstrated thickening of the pericardium compared to prior CT scan to R/O PE. Symptoms improved with toradol and colchicine now transitioed to Colchicine Motrin 600 mg tid for 1 week Prilosec 20 mg daily for GI prophylaxis for 1 week Colchicine .6 mg bid for 3 months. Pt reassured that Trop has peaked/ will check another Trop now #PAF Pt with A-fib in the setting of pericarditis. Resolved with amiodarone infusion and treatment of pericarditis. Started on Eliquis 5 BID for [id number] of 2 (vascular disease and htn) Will plan on 30-day telemetry monitoring to evaluate for AF burden #CAD - Pt has mild non-obstructive CAD by angiogram. Continue secondary prevention. We discussed diet and exercise #Tobacco use - Discussed the importance of smoking cessation Pt may continue nicotine patches prn to aid cessation #Hyperlipidemia LDL 86 on lipitor 10 mg daily now to 20 mg daily. FLP and LFTs in 3 months 05/24/18 08:45 Plan: - OK to d/c if last trop continues to trend down - F/u BH in 1 week - Outpatient monitor for a month after discharge (will be sent to his home) 05/25/18 09:17 Subjective: Feels improved. Only mild cp on inspiration 01/10. Time Spent with Patient: greater than 25 minutes Time Spent with Patient: Greater than 25 minutes spent on this patients care, greater than 50% of time spent counseling, educating, and coordinating care regarding the above mentioned plan. Objective: Vital Signs (8 Hrs) Temp Pulse Resp BP Pulse Ox 05/25/18 07:36 97.9 F 62 14 137/80 H 93 05/25/18 02:30 98.1 F 68 19 150/89 H 92 Intake/Output (24 Hrs) 05/24/18 05/25/18 05/26/18 05:59 05:59 05:59 Intake Total 1709 1726.8 Output Total 550 Balance 1159 1726.8 Intake: Oral (ml) 605 1360 IV Intake (ml) 900 IV Infused (ml) 204 366.8 Amiodarone HCl 540 mg In 204 66.8 D5w 300 ml @ 16.667 mls/ hr IV ONCE ONE Rx#: [id number] Ns 1,000 ml @ 75 mls/hr 300 IV CONT PATY Rx#: [id number] Output: Urine (ml) 550 Urinal 550 Other: Number of Voids Toilet 2 Urinal 1 Number of Stools Toilet 0 Result Diagrams: 05/25/18 03:32 05/25/18 03:32 Cardiac Labs: Cardiac Lab Results (72 Hrs) 05/25/18 05/24/18 05/24/18 03:32 19:55 13:50 Troponin I 2.810 H 5.500 H 5.120 H 05/24/18 05/24/18 05/23/18 09:50 03:44 12:15 Troponin I 2.950 H 0.585 H 0.036 H 05/23/18 05:30 Troponin I 0.048 H EKG: SR RBBB Telemetry: reviewed, now in SR Echocardiogram: Reviewed - Physical Exam Constitutional: healthy appearing, no apparent distress Eyes: PERRL, anicteric sclera Ears, Nose, Mouth, Throat: moist mucous membranes Cardiovascular: regular rate and rhythm, no murmurs Respiratory: clear to auscultate bilat, no crackles Gastrointestinal: normoactive bowel sounds Genitourinary: No coker in urethra Skin: no rashes, no abrasions Musculoskeletal: no muscular tenderness, no joint effusions Neurologic: AAOx3 Psychiatric: cooperative, interactive ICD10 Worksheet Patient Problems: Problems Problem Status Onset Chest pain Acute
--- NOTE | 2018-05-25 10:10 | PDMN ---
Medical Necessity Medical necessity: MCG: M40 angina- recurrent req intervention, ( angio, LVR, RHC, ) evidence of acute demand ischemia with elevated trop., and afib., RVR, evidence of acute pericarditis/pleuritis MCG 270 pericarditis A-2 days: cont. monitoring, eval and tx needed.
[2018-05-25] MEDS: NICOTINE 14 MG/24 HR PATCH TD SCH (11:01)
[2018-05-25] MEDS: METOPROLOL TARTRATE 25 MG TAB PO SCH (11:02)
[2018-05-25] MEDS: guaiFENesin 600 MG TAB.ER PO SCH ×2 (11:02→11:06)
[2018-05-25] MEDS: COLCHICINE 0.6 MG CAP/TAB PO SCH (11:02)
[2018-05-25] MEDS: APIXABAN 5 MG TAB PO SCH (11:03)
[2018-05-25] MEDS: CETIRIZINE 10 MG TAB PO SCH (11:03)
[2018-05-25] MEDS: SERTRALINE HCL 50 MG TAB PO SCH (11:03)
[2018-05-25] MEDS: ATORVASTATIN CALCIUM 20 MG TAB PO SCH (11:03)
[2018-05-25] MEDS: clonazePAM 0.5 MG TAB PO SCH (11:03)
[2018-05-25] MEDS: PANTOPRAZOLE SODIUM 40 MG TAB PO SCH (11:03)
[2018-05-25 11:31] VITALS: BP 138/88
--- NOTE | 2018-05-25 18:28 | PDDCSUM ---
Discharge Summary Discharge Summary: DISCHARGE SUMMARY FOLLOW-UP ITEMS: Outpatient event monitor to be arranged by Dr. Charli Callahan DATE OF ADMISSION: 05/22/2018 DATE OF DISCHARGE: 05/25/2018 DISCHARGE DIAGNOSES: 1. Acute perimyocarditis 2. New onset of acute atrial fibrillation with rapid ventricular response 3. Acute hypotension 4. Type [address]-elevation myocardial infarction 5. Incidental bladder nodularity CONSULTATIONS: Cardiology PROCEDURES / IMAGING: Cardiac catheterization demonstrating no obstructive coronary disease CT of the abdomen demonstrating pericardial enhancement consistent with pericarditis, some incidentally noted bladder nodularity CHIEF COMPLAINT: Acute chest pain SUBJECTIVE: Patient has no chest pain at time of discharge PHYSICAL EXAM ON DISCHARGE: Systolic blood pressure 130-150, heart rate 60-70, afebrile overnight, satting well on room air, alert awake oriented x3, lungs are clear to auscultation bilaterally, occasional ectopic beat on heart rhythm, but is regular comma and not tachycardic LABS ON DISCHARGE: Creatinine 1.1, troponin down trended to 1.7, white blood cell count 9100 HOSPITAL COURSE BY PROBLEM: The patient presented with acute chest pain most likely secondary to perimyocarditis evidenced by pericardial enhancement on CT with resultant myocardial irritation and type [address]-elevation myocardial infarction as evidenced by a peak troponin level of 5.5. This resulted in subsequent new onset atrial fibrillation with acute rapid ventricular response and hypotension. The patient underwent cardiac catheterization which demonstrated no obstructive coronary disease and he was chemically cardioverted by an IV amiodarone drip. Now the patient is a normal sinus mechanism, he will be maintained on metoprolol 12.5 mg twice daily as well as systemic anticoagulation for at least 30 days with Eliquis. His monty myocarditis was treated effectively with scheduled ibuprofen and colchicine. He will remain on the ibuprofen for 1 week and will receive a proton pump inhibitor for GI prophylaxis. Will remain on the colchicine for 3 months. He will follow up with Dr. Charli Callahan for outpatient event monitoring to determine whether he requires additional treatment for atrial fibrillation beyond the next 30 days. 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 That said, he should be monitored for episodes of recurrent perimyocarditis moving forward. DISCHARGE MEDICATIONS: Please see official discharge medication reconciliation sheet in chart , ibuprofen 600 mg q.8 hours x1 week, colchicine 0.6 mg twice daily x3 months, pantoprazole 40 mg daily x1 month, atorvastatin 20 mg daily, Eliquis 5 mg twice daily, metoprolol tartrate 12.5 mg twice daily. DISCHARGE INSTRUCTIONS: Please follow up with [facility] within 1 week. TIME SPENT: Greater than 30 minutes were spent on direct patient care, as well as discharge planning and preparation.
== END 2018-05-25 13:30 | disposition home or self-care (01) | DRG 281 ==
LOC: OBSVTOIN 05-23 00:59 → F2W 05-23 01:38
PROVIDERS: ADMIT Family Medicine; ATTEND Internal Medicine
DX: I40.9 Acute myocarditis, unspecified (principal); I30.9 Acute pericarditis, unspecified; I21.A1 Myocardial infarction type 2; I48.91 Unspecified atrial fibrillation; I95.81 Postprocedural hypotension; I45.10 Unspecified right bundle-branch block; E86.9 Volume depletion, unspecified; I25.10 Atherosclerotic heart disease of native coronary artery without angina pectoris; R93.41 Abnormal radiologic findings on diagnostic imaging of renal pelvis, ureter, or bladder; I10 Essential (primary) hypertension; E78.5 Hyperlipidemia, unspecified; F17.210 Nicotine dependence, cigarettes, uncomplicated; G47.33 Obstructive sleep apnea (adult) (pediatric); F32.9 Major depressive disorder, single episode, unspecified; F41.9 Anxiety disorder, unspecified; Z82.49 Family history of ischemic heart disease and other diseases of the circulatory system
CPT/HCPCS: 84484-PO; 96374; C1760; J0282; J0461; J0583; J1170; J1200; J1644; J1650; J1885; J2060; J2250; J2270; J2370; J2405; J2785; J3010; Q9967